=== PATIENT | female | born 1960 | race Two or more races ===

== ENCOUNTER 2017-06-22 08:35 | Day surgery (SDC) | payer OTHER ==
[~2017-06-22] VITALS: Ht 142.2 cm; Wt 47.4 kg
[~2017-06-22 08:35] MED LIST: BIOT5000 PO; GLIP10TA9 PO; LISI-613 PO; SODIUM CHLORIDE 0.9% 1000ML 1,000 ML IV ONE; SUPER B COMPLEX
[2017-06-22 08:56] VITALS: BP 184/85
[2017-06-22] MEDS ORDERED: FENTANYL CITRATE PF 50 MCG/1 ML 2ML VIAL ONE (09:38)
[2017-06-22] MEDS ORDERED: PROPOFOL 10 MG/ML 20ML VIAL IV ONE ×2 (09:38)
[2017-06-22 10:01] VITALS: BP 114/48
== END 2017-06-22 10:33 | disposition home or self-care (01) ==
LOC: DAH 08:35 → ENDO 08:35 → EDSEX 08:35 → ENDO 10:33
PROVIDERS: ATTEND Internal Medicine Gastroenterology
DX: Z12.11 Encounter for screening for malignant neoplasm of colon (principal); I10 Essential (primary) hypertension; E78.4 Other hyperlipidemia; E11.9 Type 2 diabetes mellitus without complications; Z79.899 Other long term (current) drug therapy; Z90.710 Acquired absence of both cervix and uterus
CPT/HCPCS: 45378; 82948 ×2; A4606; J2704 ×2; J3010; J7030